=== PATIENT | male | born 1995 | race Caucasian/White ===

== ENCOUNTER 2020-05-07 17:10 | Emergency (ER) | payer BC ==
--- NOTE | 2020-05-07 19:05 | EDM.PDOC ---
Scribed by Jasmyn Sanon 05/07/20 1904 for Chintan Tavera MD <Chintan Tavera - Last Filed: 05/07/20 19:04> ED HPI GENERAL MEDICAL PROBLEM - General Chief Complaint: Respiratory Problem Stated Complaint: PRIVIATE CAR - COVID Time Seen by Provider: 05/07/20 17:34 Source of Information: Reports: Patient, RN, RN Notes Reviewed History Limitations: Reports: No Limitations - History of Present Illness INITIAL COMMENTS - FREE TEXT/NARRATIVE: Patient presents to the ED with POV with complaints of fever, shortness of breath, body aches, abdominal pain, nausea, diarrhea, productive cough with yellow sputum, headache and chills that started 4 days ago. Onset: Gradual Duration: Getting Worse Location: Reports: Chest Quality: Reports: Ache Severity: Moderate Improves with: Reports: None Worsens with: Reports: None Associated Symptoms: Reports: No Other Symptoms - Related Data Allergies Allergy/AdvReac Type Severity Reaction Status Date / Time No Known Allergies Allergy Verified 05/07/20 17:44 Home Meds: Home Meds . [No Known Home Meds] 05/07/20 [History] ED ROS GENERAL - Review of Systems Review Of Systems: Comprehensive ROS is negative, except as noted in HPI. Course - Orders/Labs/Meds Labs: Rapid strep: Negative. Influenza A and B: Negative. Departure - Departure Disposition: Home, Self-Care 01 Clinical Impression: Pneumonia, community acquired Qualifiers: Laterality: unspecified laterality Qualified Code(s): J18.9 - Pneumonia, unspecified organism - Discharge Information Instructions: Community-Acquired Pneumonia, Adult, [id number] Forms: ED Department Discharge Care Plan Goals: The patient was advised of the examination, lab and x-ray results during the v isit. The patient was given an injection of Rocephin while in the ED and discharged with a script for Azithromycin (500 mg) #5 to take 1 by mouth daily for 5 days. The patient may continue to take Tylenol or ibuprofen for temporary symptom relief. If the patient has any additional symptoms or concerns, the patient should either return to the emergency department or visit his primary care facility. <Ethan Guzman - Last Filed: 05/07/20 20:09> ED HPI GENERAL MEDICAL PROBLEM - History of Present Illness INITIAL COMMENTS - FREE TEXT/NARRATIVE: The patient states he attempted to get into the clinic but was advised to come to the Ed. ED EXAM, GENERAL - Physical Exam Exam: See Below Exam Limited By: No Limitations General Appearance: Alert, WD/WN, Moderate Distress Eye Exam: Bilateral Eye: EOMI, Normal Inspection, PERRL Ears: Normal External Exam, Normal Canal, Hearing Grossly Normal, Normal TMs Nose: Normal Inspection, Normal Mucosa, No Blood Throat/Mouth: Normal Inspection, Normal Lips, Normal Teeth, Normal Gums, Normal Oropharynx, Normal Voice, No Airway Compromise Head: Atraumatic, Normocephalic Neck: Normal Inspection, Supple, Non-Tender, Full Range of Motion Respiratory/Chest: No Respiratory Distress, No Accessory Muscle Use, Chest Non- Tender, Rhonchi Cardiovascular: Normal Peripheral Pulses, Regular Rate, Rhythm, No Edema, No Gallop, No JVD, No Murmur, No Rub GI/Abdominal: Tender (epigastric) (Male) Exam: Deferred Rectal (Males) Exam: Deferred Back Exam: Normal Inspection, Full Range of Motion, NT Extremities: Normal Inspection, Normal Range of Motion, Non-Tender, Normal Capillary Refill, No Pedal Edema Neurological: Alert, Oriented, CN II-XII Intact, Normal Cognition, Normal Gait, Normal Reflexes, No Motor/Sensory Deficits Psychiatric: Normal Affect, Normal Mood Skin Exam: Increased Warmth Lymphatic: No Adenopathy Course - Vital Signs Last Recorded V/S: Last Vital Signs Temp 38.4 C H 05/07/20 17:45 Pulse 101 H 05/07/20 17:45 Resp 18 05/07/20 17:45 BP 123/70 05/07/20 17:45 Pulse Ox 99 05/07/20 17:45 - Orders/Labs/Meds Orders: Active Orders 24 hr Category Date Time Status AMYLASE [CHEM] Stat Lab 05/07/20 19:14 Ordered COMPREHENSIVE METABOLIC PN,CMP [CHEM] Stat Lab 05/07/20 19:11 Ordered CULTURE BLOOD [BC] Stat Lab 05/07/20 19:11 Ordered CULTURE STREP A CONFIRMATION [RM] Stat Lab 05/07/20 18:15 Results LACTATE SEPSIS W/ REFLEX [CHEM] Stat Lab 05/07/20 19:11 Ordered LIPASE [CHEM] Stat Lab 05/07/20 19:14 Ordered STREP SCRN A RAPID W CULT CONF [RM] Stat Lab 05/07/20 18:15 Results Isolation [COMM] Routine Oth 05/07/20 18:13 Active Labs: Laboratory Tests 05/07/20 05/07/20 Range/Units 17:15 19:34 WBC 6.1 (5.0-10.0) 10^3/uL RBC 4.77 (4.6-6.2) 10^6/uL Hgb 13.9 L (14.0-18.0) g/dL Hct 40.5 (40.0-54.0) % MCV 84.9 (80-100) fL MCH 29.1 (27.0-34.0) pg MCHC 34.3 (33.0-35.0) g/dL Plt Count 174 (150-450) 10^3/uL Neut % (Auto) 82.2 H (42.2-75.2) % Lymph % (Auto) 11.7 L (20.5-50.1) % [place] % (Auto) 5.7 (2-8) % Eos % (Auto) 0.2 L (1.0-3.0) % Baso % (Auto) 0.2 (0.0-1.0) % COVID-19 (SABINO) Negative (NEGATIVE) Meds: Medications Discontinued Medications Generic Name Dose Route Start Last Admin Trade Name Asif PRN Reason Stop Dose Admin Ceftriaxone Sodium 1 gm/ 0 gm 05/07/20 20:05 Lidocaine HCl 2.1 ml IM 05/07/20 20:06 ONETIME ONE Departure - Departure Time of Disposition: 20:07 Condition: Fair - Discharge Information *PRESCRIPTION DRUG MONITORING PROGRAM REVIEWED*: Not Applicable *COPY OF PRESCRIPTION DRUG MONITORING REPORT IN PATIENT KIRBY: Not Applicable Sepsis Event Note (ED) - Focused Exam Vital Signs: Vital Signs Temp Pulse Resp BP Pulse Ox 05/07/20 17:45 38.4 C H 101 H 18 123/70 99 - My Orders Last 24 Hours: My Active Orders 05/07/20 19:11 COMPREHENSIVE METABOLIC PN,CMP [CHEM] Stat CULTURE BLOOD [BC] Stat LACTATE SEPSIS W/ REFLEX [CHEM] Stat 05/07/20 19:14 AMYLASE [CHEM] Stat LIPASE [CHEM] Stat - Assessment/Plan Last 24 Hours: My Active Orders 05/07/20 19:11 COMPREHENSIVE METABOLIC PN,CMP [CHEM] Stat CULTURE BLOOD [BC] Stat LACTATE SEPSIS W/ REFLEX [CHEM] Stat 05/07/20 19:14 AMYLASE [CHEM] Stat LIPASE [CHEM] Stat I have read and agree with the documentation that has been completed regarding this visit. By signing this record, I attest that the documentation was completed in my physical presence and is an accurate record of the encounter.
--- NOTE | 2020-05-07 19:38 | CR ---
PROCEDURE INFORMATION: Exam: XR Chest, 2 Views Exam date and time: 05/07/2020 7:12 PM Age: 25 years old Clinical indication: Cough and fever; Additional info: Cough with fever TECHNIQUE: Imaging protocol: XR of the chest Views: 2 views. COMPARISON: No relevant prior studies available. FINDINGS: Lungs: Dense consolidation left lower lobe, there may well be left effusion. Interstitial abnormality right mid and lower lung. These changes are likely inflammatory as well. Pleural space: There is no evidence of pneumothorax. Heart/Mediastinum: The heart is not enlarged. Bones/joints: No acute bony findings are identified. IMPRESSION: 1. Dense consolidation left lower lobe suspect for extensive pneumonia likely with small left-sided pleural effusion. 2. There is interstitial disease right mid and right lower lung, there likely is right-sided pneumonia as well. 3. Etiology indeterminate
[2020-05-07] MEDS ORDERED: cefTRIAXone 1 GM, Lidocaine 1% 2.1 ML IM ONE ×2 (20:05)
[2020-05-07 20:10] LABS: ANION GAP 14.4 mEq/L (7-13); CHLORIDE,CL 92 mmol/L (98-107); SODIUM,NA 130 mmol/L (136-145)
[2020-05-07] MEDS ORDERED: Ibuprofen 800 MG Tab PO ONE (20:29)
[2020-05-07] MEDS ORDERED: Ondansetron 4 MG Tab.DIS PO ONE (20:30)
== END 2020-05-07 20:39 | disposition home or self-care (01) ==
LOC: EDBD → DL.ED 17:10
DX: J18.9 Pneumonia, unspecified organism (principal); Z20.828 Contact with and (suspected) exposure to other viral communicable diseases
CPT/HCPCS: 36415; 71046; 80053; 82150; 83605; 83690; 85025; 87040; 87081; 87430; 87635; 87804; 96372; 99284; A9270; J0696; J2001; U0002

== ENCOUNTER 2021-08-10 09:04 | Emergency (ER) | payer SELFPAY ==
--- NOTE | 2021-08-10 09:35 | EDM.PDOC ---
ED HPI GENERAL MEDICAL PROBLEM - General Chief Complaint: Respiratory Problem Stated Complaint: POSSIBLE PNEUMONIA Time Seen by Provider: 08/10/21 09:34 Source of Information: Reports: Patient, Old Records, RN, RN Notes Reviewed History Limitations: Reports: No Limitations - History of Present Illness INITIAL COMMENTS - FREE TEXT/NARRATIVE: Zac is a 26 y/o male who presents to the ED via personal vehicle with complaints of fever, muscle aches, and cough. The patient reports his symptoms began two days ago and have progressively worsened in that time. Additionally, he notes nausea, two bouts of emesis, and diarrhea. He has taken transient doses of acetaminophen which have reduced his muscle aches and fever; he is unsure of a TMax as he does not have a thermometer. His last dose of acetaminophen was approximately 20 minutes prior to his arrival to this facility. He denies rigors, dizziness, vision changes, sore throat, sinus congestion, chest pain/pressure, palpitations, shortness of breath, dyspepsia, abdominal pain, dysuria, or hematuria. The patient denies history of a COVID infection and is not vaccinated for COVID-19 or Influenza. He denies tobacco, alcohol, or recreational drug use. Treatments MANAGER CRISIS: Reports: Acetaminophen Lower Chest Pain Score (Numeric/FACES): 3 - Related Data Allergies Allergy/AdvReac Type Severity Reaction Status Date / Time No Known Allergies Allergy Verified 08/10/21 09:35 Home Meds: Home Meds . [No Known Home Meds] 05/07/20 [History] Past Medical History - Past Health History Medical/Surgical History: Denies Medical/Surgical History Social & Family History - Family History Family Medical History: No Pertinent Family History - Tobacco Use Tobacco Use Status *Q: Never Tobacco User - Caffeine Use Caffeine Use: Reports: None - Recreational Drug Use Recreational Drug Use: No ED ROS GENERAL - Review of Systems Review Of Systems: Comprehensive ROS is negative, except as noted in HPI. ED EXAM, GENERAL - Physical Exam Exam: See Below Exam Limited By: No Limitations General Appearance: Alert, No Apparent Distress Eye Exam: Bilateral Eye: EOMI, Normal Inspection, PERRL (3mm) Ears: Normal External Exam, Hearing Grossly Normal, Normal TMs Ear Exam: Bilateral Ear: Erythema (To bilateral canals) Nose: Normal Inspection Throat/Mouth: Normal Inspection, Normal Oropharynx, Normal Voice, No Airway Compromise Head: Atraumatic, Normocephalic Neck: Normal Inspection, Supple, Non-Tender, Full Range of Motion. No: Lymphadenopathy (L), Lymphadenopathy (R) Respiratory/Chest: No Respiratory Distress, No Accessory Muscle Use, Chest Non- Tender, Decreased Breath Sounds. No: Crackles, Rales, Rhonchi, Wheezing, Stridor Cardiovascular: Normal Peripheral Pulses, Regular Rate, Rhythm, No Edema, No Gallop, No JVD, No Murmur, No Rub, Tachycardia Peripheral Pulses: 2+: Radial (L), Radial (R) GI/Abdominal: Normal Bowel Sounds, Soft, Non-Tender, No Distention, No Abnormal Bruit, No Mass, Pelvis Stable (Male) Exam: Deferred Rectal (Males) Exam: Deferred, Prostate Nodule Back Exam: Normal Inspection Extremities: Normal Inspection, Normal Range of Motion, Non-Tender, No Pedal Edema, Normal Capillary Refill Neurological: Alert, Oriented, CN II-XII Intact, Normal Cognition, Normal Gait, No Motor/Sensory Deficits Psychiatric: Normal Affect, Normal Mood Skin Exam: Warm, Dry, Normal Color, No Rash. No: Cyanosis, Jaundice, Mottled, Pallor Course - Vital Signs Last Recorded V/S: Last Vital Signs Temp 101.8 F H 08/10/21 09:19 Pulse 102 H 08/10/21 09:19 Resp 18 08/10/21 09:19 BP 121/77 08/10/21 09:19 Pulse Ox 99 08/10/21 09:19 - Orders/Labs/Meds Orders: Active Orders 24 hr Category Date Time Status CULTURE BLOOD [BC] Stat Lab 08/10/21 09:26 Results CULTURE BLOOD [BC] Stat Lab 08/10/21 09:30 Results UA RFX TRUONG AND CULT IF INDIC [URIN] Stat Lab 08/10/21 09:32 Ordered Blood Culture x2 Reflex Set [OM.PC] Stat Oth 08/10/21 09:32 Ordered Labs: Laboratory Tests 08/10/21 08/10/21 08/10/21 Range/Units 09:12 09:30 09:30 WBC 7.0 (5.0-10.0) 10^3/uL RBC 5.23 (4.6-6.2) 10^6/uL Hgb 15.4 D (14.0-18.0) g/dL Hct 45.3 (40.0-54.0) % MCV 86.6 (80-100) fL MCH 29.4 (27.0-34.0) pg MCHC 34.0 (33.0-35.0) g/dL Plt Count 154 (150-450) 10^3/uL Neut % (Auto) 79.2 H (42.2-75.2) % Lymph % (Auto) 10.9 L (20.5-50.1) % [place] % (Auto) 9.8 H (2-8) % Eos % (Auto) 0.0 L (1.0-3.0) % Baso % (Auto) 0.1 (0.0-1.0) % Sodium 136 (136-145) mmol/L Potassium 4.3 (3.5-5.1) mmol/L Chloride 97 L (98-107) mmol/L Carbon Dioxide 28 (21-32) mmol/L Anion Gap 15.3 H (7-13) mEq/L BUN 10 (7-18) mg/dL Creatinine 1.12 (0.70-1.30) mg/dL Est Cr Clr Drug Dosing 109.70 mL/min Estimated GFR (MDRD) > 60 BUN/Creatinine Ratio 8.9 (No establ ref range) Glucose 99 (70-99) mg/dL Calcium 8.9 (8.5-10.1) mg/dL Total Bilirubin 0.4 (0.2-1.0) mg/dL AST 26 (15-37) U/L ALT 29 (16-63) U/L Alkaline Phosphatase 69 (46-116) U/L C-Reactive Protein 4.9 H (0.0-0.9) mg/dL Total Protein 7.7 (6.4-8.2) g/dL Albumin 4.1 (3.4-5.0) g/dL Globulin 3.6 Albumin/Globulin Ratio 1.1 Influenza Type A RNA Negative (NEGATIVE) Influenza Type B RNA Negative (NEGATIVE) SARS-CoV-2 RNA (SABINO) Positive H (NEGATIVE) - Radiology Interpretation Free Text/Narrative:: [facility] Final Radiology Report Call: [phone] assistance Online chat: [email or web address] Name: ZAC APARICIO Age: 26Years M Date: 08/10/2021 SSN: -- : [id number] Study: CR CHEST 1V FRONTAL Requesting Physician: Lucero Morales Images: 1 Addl Studies: Provided Clinical History: Decreased breath sounds; Fever 101.9 Contrast: Contrast Medium: Contrast Amount: Contrast Method: CONFIDENTIALITY STATEMENT This report is intended only for use by the referring physician, and only in accordance with law. If you received this in error, call [phone]. Page 1 of 1 PROCEDURE INFORMATION: Exam: XR Chest Exam date and time: 08/10/2021 10:10 AM Age: 26 years old Clinical indication: Other: Decreased breath sounds; Fever 101.9 TECHNIQUE: Imaging protocol: XR of the chest. Views: 1 view. COMPARISON: CR Chest 2V 05/07/2020 7:12 PM FINDINGS: Lungs: Unremarkable. No consolidation. Pleural spaces: Unremarkable. No pleural effusion. No pneumothorax. Heart/Mediastinum: Unremarkable. No cardiomegaly. Bones/joints: Unremarkable. IMPRESSION: No acute findings. Thank you for allowing us to participate in the care of your patient. Dictated and Authenticated by: Héctor Aleman MD 08/10/2021 10:34 AM Central Time ([place] & [place]) - Re-Assessments/Exams Free Text/Narrative Re-Assessment/Exam: 08/10/21 Findings of examination, lab work, and imaging reviewed with patient. State Health Department guidelines regarding quarantine reviewed. Supportive cares for COVID-19 discussed. Will treat cough with Tessalon Perles and SOB with albuterol MDI. Red flag signs and symptoms which would warrant immediate reevaluation reviewed. Patient verbalized understanding and agreement with the plan of care. Departure - Departure Time of Disposition: 10:19 Disposition: Home, Self-Care 01 Condition: Good Clinical Impression: Pneumonia due to COVID-19 virus - Discharge Information *PRESCRIPTION DRUG MONITORING PROGRAM REVIEWED*: Not Applicable *COPY OF PRESCRIPTION DRUG MONITORING REPORT IN PATIENT KIRBY: Not Applicable Instructions: COVID-19 Vaccine Information, 10 Things You Can Do to Manage Your COVID-19 Symptoms at Home - [facility] (03/13/2021), COVID-19: How to Protect Yourself and Others - CDC, COVID-19: What to Do If You Are Sick- [facility] (11/12/2020) Forms: ED Department Discharge Additional Instructions: Rx: Tessalon Perles 100mg (#21) Rx: albuterol MDI 90mcg/act (#1) 1.) Follow [facility] guidelines regarding quarantine; your quarantine date begins with the onset of symptoms. 2.) Drink small frequent sips of fluids to stay hydrated and avoid nausea. Should you continue to vomit, drink Powerade/Gatorade along with water. 3.) Eat a bland diet, such as toast, crackers, applesauce. Avoid spicy, greasy, high-fat foods. 4.) You may take ibuprofen (Advil/Motrin) 400mg every six hours, as muscle aches and fever persist. You may also take acetaminophen (Tylenol) 650-1000mg every six hours, as fever and muscles aches persist. You may stagger these medications so you are taking a dose of either every three hours. 5.) Follow up with your primary care provider, or return to the emergency department with any chest pain, significant shortness of breath, or fever that does not reduce with medications. 6.) Rest. Sepsis Event Note (ED) - Evaluation Sepsis Screening Result: Possible Sepsis Risk - Focused Exam Vital Signs: Vital Signs Temp Pulse Resp BP Pulse Ox 08/10/21 09:19 101.8 F H 102 H 18 121/77 99 - My Orders Last 24 Hours: My Active Orders 08/10/21 09:26 CULTURE BLOOD [BC] Stat 08/10/21 09:30 CULTURE BLOOD [BC] Stat 08/10/21 09:32 UA RFX TRUONG AND CULT IF INDIC [URIN] Stat Blood Culture x2 Reflex Set [OM.PC] Stat - Assessment/Plan Last 24 Hours: My Active Orders 08/10/21 09:26 CULTURE BLOOD [BC] Stat 08/10/21 09:30 CULTURE BLOOD [BC] Stat 08/10/21 09:32 UA RFX TRUONG AND CULT IF INDIC [URIN] Stat Blood Culture x2 Reflex Set [OM.PC] Stat
[2021-08-10 09:57] LABS: ANION GAP 15.3 mEq/L (7-13); CHLORIDE,CL 97 mmol/L (98-107); SODIUM,NA 136 mmol/L (136-145)
[2021-08-10 10:04] LABS: CORONAVIRUS COVID-19 NAA POSITIVE (NEGATIVE)
--- NOTE | 2021-08-10 10:35 | CR ---
PROCEDURE INFORMATION: Exam: XR Chest Exam date and time: 08/10/2021 10:10 AM Age: 26 years old Clinical indication: Other: Decreased breath sounds; Fever 101.9 TECHNIQUE: Imaging protocol: XR of the chest. Views: 1 view. COMPARISON: CR Chest 2V 05/07/2020 7:12 PM FINDINGS: Lungs: Unremarkable. No consolidation. Pleural spaces: Unremarkable. No pleural effusion. No pneumothorax. Heart/Mediastinum: Unremarkable. No cardiomegaly. Bones/joints: Unremarkable. IMPRESSION: No acute findings.
== END 2021-08-10 10:30 | disposition home or self-care (01) ==
LOC: DL.ED 09:04
DX: U07.1 COVID-19 (principal); J12.82 Pneumonia due to coronavirus disease 2019
CPT/HCPCS: 0240U; 36415; 71045; 80053; 85025; 86140; 87040; 99283-25